=== PATIENT | male | born 1965 | race Asian ===

== ENCOUNTER 2016-04-02 11:06 | Day surgery (SDC) | payer OTHER ==
[~2016-04-02] VITALS: Ht 182.9 cm; Wt 90.7 kg
== END 2016-04-02 14:00 | disposition home or self-care (01) ==
LOC: OR 11:06
PROC: 0DBP8ZZ Excision of Rectum, Via Natural or Artificial Opening Endoscopic (ICD-10-PCS; principal; 2016-04-02)
DX: K62.1 Rectal polyp (principal); K64.8 Other hemorrhoids; Z12.11 Encounter for screening for malignant neoplasm of colon; R94.5 Abnormal results of liver function studies
CPT/HCPCS: J2704

== ENCOUNTER 2021-07-20 19:55 | Emergency (ER) | payer BC ==
[~2021-07-20] VITALS: Ht 177.8 cm; Wt 97.1 kg
[2021-07-20 20:27] LABS: PLATELET COUNT 281 K/uL (142-355)
[2021-07-20 20:33] LABS: POTASSIUM 4.5 mmol/L (3.6-5.2)
[2021-07-20 20:43] LABS: PARTIAL THROMBOPLASTIN TIME 21.5 SECONDS (24.5-33.6)
[2021-07-20 23:10] VITALS: BP 133/81; TEMP 97.8
== END 2021-07-20 23:10 | disposition home or self-care (01) ==
LOC: ED 19:55
PROVIDERS: Family Medicine
DX: E86.0 Dehydration (principal); R42 Dizziness and giddiness; E11.9 Type 2 diabetes mellitus without complications; N18.9 Chronic kidney disease, unspecified
CPT/HCPCS: 80053; 82550; 84484; 85027; 85610; 85730; 93005; 96360; 96361; 99284